=== PATIENT | female | born 1995 | race Hispanic/Latino ===

== ENCOUNTER 2019-07-25 07:41 | Emergency (ER) | payer SELFPAY ==
[2019-07-25] MEDS ORDERED: IPRATROPIUM/ALBUTEROL SULFATE 3 ML SOLUTION IH ONE (08:42)
[2019-07-25 08:49] LABS: BASOPHILS % (AUTO) 0.6 % (0.0-5.0); EOSINOPHILS % (AUTO) 1.2 % (0.0-8.0); HEMATOCRIT 40.5 % (36-48); LYMPHOCYTES % (AUTO) 22.6 % (21.0-51.0); MEAN CORPUSCULAR HEMOGLOBIN 28.5 pg (27.0-33.0); MEAN CORPUSCULAR HGB CONC 33.3 g/dL (32.0-36.0); MEAN CORPUSCULAR VOLUME 85.8 fL (79-99); MONOCYTES % (AUTO) 4.9 % (3.0-13.0); NEUTROPHILS % (AUTO) 70.7 % (40.0-77.0); PLATELET COUNT (AUTO) 307 K/uL (130-400); RED BLOOD CELL COUNT(AUTO) 4.71 MIL/uL (4.00-5.50); RED CELL DISTRIBUTION WIDTH 13.2 % (11.0-15.5); WHITE BLOOD COUNT (AUTO) 11.8 K/uL (4.8-10.8)
[2019-07-25 08:53] LABS: CREATININE 0.8 mg/dL (0.5-1.5); POTASSIUM 3.5 mmol/L (3.5-5.1)
[2019-07-25] MEDS ORDERED: DEXAMETHASONE SOD PHOSPHATE 10MG/ML 1ML VIAL ONE (08:57)
[2019-07-25 09:40] LABS: B-TYPE NATRIURETIC PEPTIDE < 5 pg/mL (0-100)
== END 2019-07-25 11:04 | disposition home or self-care (01) ==
LOC: EDH 07:41
DX: J20.9 Acute bronchitis, unspecified (principal)
CPT/HCPCS: 36415; 71045; 80048; 83880; 85025; 93005; 94640; 96374; 99285; J1100

== ENCOUNTER 2019-10-11 12:04 | Emergency (ER) | payer OTHER | END 2019-10-11 13:51 | disposition home or self-care (01) | LOC: EDH 12:04 | DX: G89.18 Other acute postprocedural pain (principal); R10.9 Unspecified abdominal pain | CPT/HCPCS: 99281 ==

== ENCOUNTER 2023-03-15 22:37 | Emergency (ER) | payer OTHER ==
[~2023-03-15] VITALS: Ht 157.5 cm; Wt 74.8 kg
[2023-03-15 22:40] VITALS: BP 115/82
[2023-03-15 23:42] LABS: BILIRUBIN,URINE NEGATIVE (NEGATIVE); COLOR,URINE YELLOW (YELLOW); GLUCOSE, URINE (UA) NEGATIVE (NEGATIVE); KETONES,URINE NEGATIVE (NEGATIVE); LEUKOCYTE ESTERASE ,URINE NEGATIVE Leu/uL (NEGATIVE); NITRATE,URINE NEGATIVE (NEGATIVE); OCCULT BLOOD,URINE MODERATE (NEGATIVE); PROTEIN,URINE 30 mg/dL (NEGATIVE)
[2023-03-15 23:49] LABS: APPEARANCE,URINE SLIGHTLY CLOUDY (CLEAR)
[2023-03-15 23:50] LABS: BACTERIA,URINE RARE /HPF (None Seen); MUCUS,URINE RARE LPF (None Seen); RBC,URINE 26-50 /HPF (0-1); SQUAMOUS EPITHELIAL CELL,UR MANY /HPF (0-2)
[2023-03-15 23:53] LABS: HCG,QUALITATIVE URINE NEGATIVE (NEGATIVE)
== END 2023-03-16 01:46 | disposition home or self-care (01) ==
LOC: EDH 22:37
DX: K80.20 Calculus of gallbladder without cholecystitis without obstruction (principal); Z98.890 Other specified postprocedural states
CPT/HCPCS: 74176; 81001; 81025; 87088